=== PATIENT | male | born 1950 | race Caucasian/White ===

== ENCOUNTER 2019-07-24 07:30 | Outpatient (CLI) | payer MEDICARE, SELFPAY ==
--- NOTE | ~2019-07-24 | PE_ITS ---
. EXAMINATION: PET skull to mid thigh DATE: 07/24/2019 10:48 INDICATION: Mass of lower lobe of right lung. TECHNIQUE: Blood glucose level was 119 mg/dL. 8.094 mCi of 18-fluorodeoxyglucose (18-FDG) was adminis tered i.v. Low dose computed tomography (CT) images were acquired from the base of the brain to the p roximal thighs for attenuation correction and anatomic localization. Automated exposure control was e mployed. Dose-length product (DLP) was 735 mGy-cm. Positron emission tomography (PET) images were acq uired in the same distribution. COMPARISON: Chest CT 07/08/2019, CT abdomen and pelvis 01/24/2016 FINDINGS: Head/neck: There are no pathologically enlarged lymph nodes. Chest: There is a 3.2 x 2.3 cm mass in right lung lower lobe near the hilum with maximum SUV of 9.5. There are airspace opacities in the more peripheral right lower lobe without increased activity, cons istent with pneumonia. No pleural effusion. The heart size is normal. There are coronary artery calci fications. There are calcifications of aortic valve. There is a 1.5 x 1.5 cm right paratracheal lymph node without increased activity, likely reactive. Abdomen/pelvis/proximal thighs: The liver and spleen are normal. There are gallstones in the gallblad geovani, which is normal in size. The pancreas, adrenal glands, and kidneys are normal. There are no dila barron loops of bowel. The prostate is moderately enlarged. There is diffuse bladder wall thickening, li brooklynn secondary to chronic outlet obstruction from the enlarged prostate. There are no pathologically enlarged lymph nodes. There is trace perihepatic ascites. There is no osseous metastatic disease. IMPRESSION: 1. 3.2 x 2.3 cm mass in right lung lower lobe with maximum SUV of 9.5, consistent with primary bronch ogenic carcinoma. Bronchoscopy is recommended. 2. Postobstructive pneumonia in right lower lobe. Reviewed, dictated and finalized at location A. N RESOURCE ADVISER IMPRESSION: 1. 3.2 x 2.3 cm mass in right lung lower lobe with maximum SUV of 9.5, consiste nt with primary bronchogenic carcinoma. Bronchoscopy is recommended. 2. Postobstructive pneumonia in right lower lobe.
[2019-07-24 08:25] LABS: Glucose Point of Care 119 (65-105)
== END 2019-07-24 07:31 | disposition home or self-care (01) ==
PROVIDERS: PCP Internal Medicine
DX: R91.8 Other nonspecific abnormal finding of lung field (principal)
CPT/HCPCS: 78815; A9552

== ENCOUNTER 2019-08-14 09:10 | Outpatient (CLI) | payer MEDICARE, SELFPAY ==
--- NOTE | ~2019-08-14 | US_ITS ---
EXAMINATION: US carotid duplex BI EXAM DATE: 08/14/2019 10:03 INDICATION: Carotid artery stenosis. TECHNIQUE: Grayscale, color and pulsed Doppler images of the cervical carotid arteries were obtained . The degree of vessel stenosis is placed in one of the following categories: normal, <50% stenosis, 50-69% stenosis, >=70% stenosis but less than near-occlusion, near-occlusion, or occlusion. Note that percent stenosis relative to normal distal artery lumen diameter is indirectly measured from velocit y measurements as described by Shashi, et al. Radiology 2003; [id number]:[id number]. Comparison is made to prior examination from 11/27/2012. FINDINGS: RIGHT SIDE: Right common carotid artery peak systolic velocity (PSV in cm/s): 108 Right bulb/internal carotid artery peak systolic velocity (PSV in cm/s): 72 Right internal carotid artery end diastolic velocity (EDV in cm/s): 21 Right ICA/CCA peak systolic ratio: 0.6 Right external carotid artery peak systolic velocity (PSV in cm/s): 136 Right vertebral artery antegrade flow: yes There is no focal plaque identified. LEFT SIDE: Left common carotid artery peak systolic velocity (PSV in cm/s): 98 Left bulb/internal carotid artery peak systolic velocity (PSV in cm/s): 150 Left internal carotid artery end diastolic velocity (EDV in cm/s): 29 Left ICA/CCA peak systolic ratio: 1.5 Left external carotid artery peak systolic velocity (PSV in cm/s): 97 Left vertebral artery antegrade flow: yes Moderate amount of left carotid bulb plaque, 50-69% carotid stenosis category. IMPRESSION: 1. Less than 50 percent stenosis in the right internal carotid artery. 2. 50-69% stenosis left internal carotid artery. Reviewed, dictated and finalized at location B. NO CONTROLLER
== END 2019-08-14 09:11 | disposition home or self-care (01) ==
PROVIDERS: PCP Internal Medicine; Visit Provider Internal Medicine Cardiovascular Disease
DX: I65.23 Occlusion and stenosis of bilateral carotid arteries (principal)
CPT/HCPCS: 93880

== ENCOUNTER 2019-08-29 05:39 | Emergency (ER) | payer MEDICARE, SELFPAY ==
[2019-08-29] VITALS (24 sets, daily range): BP systolic 142–176; BP diastolic 52–110; PULSE 60–129; RESP 16–28; TEMP 36.7; O2SAT 90–99
--- NOTE | ~2019-08-29 | XR_ITS ---
XR chest 2V DATE: 08/29/2019 06:12 INDICATION: Shortness of breath TECHNIQUE: PA and lateral views COMPARISON: 12/17/2015 2 view chest 07/08/2019 CT chest FINDINGS: There is residual patchy infiltrate in the right lower lobe, primarily in the posteromedial basilar segments. The lungs otherwise appear clear. Status post sternotomy/coronary artery bypass graft surgery. Heart size is within normal limits. Ther e is probably vascular redistribution, prominence of the fissures and Joni B-lines suggesting mild congestive changes. No pleural effusion or pneumothorax is evident. Aortic arch calcification. IMPRESSION: Persistent patchy right lower lobe primarily posterior or medial basilar infiltrate Mild congestive changes Reviewed, dictated and finalized at location A. IMPRESSION: Persistent patchy right lower lobe primarily posterior or medial ba silar infiltrate Mild congestive changes
--- NOTE | ~2019-08-29 | CT_ITS ---
EXAMINATION: CTA chest PE protocol DATE: 08/29/2019 10:02 INDICATION: Chest pain. TECHNIQUE: Computed tomography angiography (CTA) of the chest was performed with 100 mL Omnipaque-350 intravenous contrast timed to evaluate the pulmonary arteries. Coronal maximum intensity projection 3D-reconstructions were created by the technologist. Automated exposure control and iterative reconst ruction technique were employed. The dose-length product was 561.33 mGy-cm. COMPARISON: Chest CT 07/08/2019, PET CT 07/24/2019 FINDINGS: There is a 3.1 x 2.6 cm mass in right lung lower lobe. There are mucous plugging and airspa ce and groundglass opacities in basilar right lower lobe peripheral to the mass, consistent with pneu monia. There is smooth septal thickening in the lungs, consistent with mild pulmonary edema. There ar e small pleural effusions, right worse than left. There is mild right hilar and right paratracheal ly mphadenopathy. The heart size is normal. There are coronary artery calcifications. There are changes of coronary artery bypass grafting. There are calcifications of the aortic valve. There is no pulmona ry embolus. There is a small volume of perihepatic ascites. There is mild thoracic spondylosis. IMPRESSION: 1. No pulmonary embolus. 2. Stable mass in right lung lower lobe, consistent with primary bronchogenic carcinoma. 3. Postobstructive pneumonia in basilar right lower lobe. 4. Mild pulmonary edema and small pleural effusions. 5. Mild right hilar and mediastinal lymphadenopathy without change and without increased activity on the prior PET, likely reactive. 6. Small volume of ascites. Reviewed, dictated and finalized at location A. IMPRESSION: 1. No pulmonary embolus. 2. Stable mass in right lung lower lobe, consistent with primary bronchogenic c arcinoma. 3. Postobstructive pneumonia in basilar right lower lobe. 4. Mild pulmonary edema and small pleural effusions. 5. Mild right hilar and mediastinal lymphadenopathy without change and without increased activity on the prior PET, likely reactive. 6. Small volume of ascites.
--- NOTE | 2019-08-29 05:46 | ECG_ITS ---
Measurements Intervals [place] Rate: 72 P: 51 OH: 154 QRS: 62 QRSD: 110 T: 145 QT: 397 QTc: 437 Interpretive Statements SINUS RHYTHM POSSIBLE LEFT ATRIAL ENLARGEMENT ST-T WAVE ABNORMALITY IN ANTEROLAT/LAT LEADS- CONSIDER ISCHEMIA ABNORMAL ECG Electronically Signed On 08-29-2019 7:10:02 CDT by Kane Talamantes D.O.
[2019-08-29 06:00] LABS: Basophils Percent Auto 0.5 % (0.2-1.2); Eosinophils Absolute Auto 0.1 K/mm3 (0-0.3); Eosinophils Percent Auto 1.3 % (0-4.4); Hematocrit 33.6 % (42.0-52.0); Hemoglobin 10.3 g/dL (14.0-18.0); Immature Granulocyte Absolute 0.02 K/mm3 (0.00-0.031); Immature Granulocyte Percent A 0.3 % (0-0.5); Lymphocytes Absolute Auto 0.81 K/mm3 (0.9-3.2); Lymphocytes Percent Auto 12.9 % (18.3-44.2); Mean Corpuscular HGB Conc 30.7 g/dl (32-36); Mean Corpuscular Volume 84.8 fl (80-100); Mean Platelet Volume 10.6 fl (7.4-10.4); Monocytes Absolute Auto 0.4 K/mm3 (0.1-0.6); Neutrophils Absolute Auto 4.9 K/mm3 (1.3-6.7); Platelet Count Result 84 k/mm3 (150-375); Red Blood Count 3.96 M/mm3 (4.6-6.20); White Blood Count 6.3 K/mm3 (4.5-10.0)
[2019-08-29 06:09] LABS: Prothrombin Time 12.7 Seconds (11.1-14.7)
[2019-08-29 06:10] LABS: Partial Thromboplastin Time 30.3 SECONDS (22.3-36.8)
[2019-08-29 06:18] LABS: Blood Urea Nitrogen 15 mg/dL (9-20); Carbon Dioxide 27 mmol/L (22-30); Chloride 103 mmol/L (98-107); Estimated Glomerular Filt Rate > 60; Glucose 230 mg/dL (75-110); Sodium 140 mmol/L (137-145)
--- NOTE | 2019-08-29 07:37 | ED.GENADULT ---
HPI - General Adult General Chief complaint: Dental/Oral Stated complaint: jaw pain Time Seen by Provider: 08/29/19 06:25 Source: patient History of Present Illness HPI narrative: Patient is a 69 y/o male complaining of bilateral jaw pain and chest tightness since approximately 1-2 hours ago starting at 5:00 AM. He rates his pain as 7/10. He took Nitro, which relieved the pain. He is currently pain free. He had some SOB, which has also resolved. There is no pain radiation. He has no chest pain, no nausea or vomiting. He states that he has known CAD and is scheduled for cath next week. He is also recently diagnosed with lung cancer. Related Data Home Medications Medication Instructions Recorded Confirmed acetaminophen-codeine tablet 08/29/19 fenofibrate nanocrystallized mg PO 08/29/19 lisinopril 08/29/19 metformin mg PO 08/29/19 metoprolol tartrate 08/29/19 nitroglycerin mg 08/29/19 omeprazole 08/29/19 sucralfate 08/29/19 Allergies Allergy/AdvReac Type Severity Reaction Status Date / Time levofloxacin Allergy Severe ANAPHYLAXIS Verified 08/29/19 05:54 Review of Systems Constitutional: Constitutional: Denies chills, Denies fever(s), Denies headache(s) and Denies weakness Eyes: Eyes: Denies blurry vision ENT: Denies headache(s) and Denies neck pain Comments: jaw pain Cardiovascular: Cardiovascular: Reports chest pain and Denies dyspnea Respiratory: Respiratory: Reports cough and Reports dyspnea Gastrointestinal: Gastrointestinal: Denies abdominal pain, Denies diarrhea, Denies nausea and Denies vomiting Genitourinary: Genitourinary: Denies hematuria and Denies dysuria Musculoskeletal: Musculoskeletal: Denies back pain and Denies neck pain Neurologic: Denies headache(s) and Denies weakness [facility] Past Medical History Medical History (Updated 08/29/19 @ 13:08 by Merna Knight MD) Atrial flutter Carotid disease, bilateral Diabetes Hyperlipidemia Junctional rhythm PAD (peripheral artery disease) Occluded right iliac, diseased left iliac Surgical History Surgical History (Updated 08/29/19 @ 09:54 by Lizzeth Valenzuela MD) Hx of CABG 2011: CABG x4. 2014: All grafts occluded except the SANDOVAL. Complex balloon angioplasty of the circumflex performed. 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 Smoking packs per day: 1 Smoking cigarettes per day: 20.0 Alcohol intake: never Exam Const: General: no acute distress and well developed Orientation/consciousness: oriented to person, oriented to place, oriented to time and patient oriented x3 HENMT: Head: normocephalic Ears: external ears normal General nose exam: Normal external nose present Eyes: General: appearance normal, both eyes and all related structures Conjunctivae: conjunctivae normal Neck: Neck: normal visual inspection and full ROM Chest: Chest palpation & inspection: normal inspection of the chest and no tenderness Resp: Effort & Inspection: normal respiratory effort Auscultation: clear to auscultation bilaterally Cardio: Rate: regular rate Rhythm: regular rhythm GI: GI Palp: No abdominal tenderness and Yes Soft to palpation Skin: General skin exam: normal color and turgor normal Neuro: General: oriented to person, oriented to place, oriented to time and patient oriented x3 Cognition (Neuro): normal cognition Extrem: General: normal to inspection, full ROM and no pedal edema Psych: Appearance: grossly normal Mental Status: mental status grossly normal Affect: normal affect Course Reevaluation(s) Reevaluation #1: Patient is seen by Dr. Valenzuela in ED. Date: 08/29/19 Time: 09:50 Reevaluati
--- NOTE | 2019-08-29 08:07 | ECG_ITS ---
Measurements Intervals [place] Rate: 126 P: 54 VA: 222 QRS: 100 QRSD: 128 T: -4 QT: 349 QTc: 506 Interpretive Statements ATRIAL FLUTTER/TACHYCARDIA WITH RAPID VENTRICULAR RESPONSE RIGHT BUNDLE BRANCH BLOCK ST-T WAVE ABNORMALITY IN INFERIOR LEADS- CONSIDER ISCHEMIA ABNORMAL ECG Electronically Signed On 08-29-2019 8:19:22 CDT by Kane Talamantes D.O.
[2019-08-29] MEDS: METOPROLOL TARTRATE INJ 5 MG/5 ML VIAL IV PUSH (09:00)
[2019-08-29 09:01] LABS: D Dimer 0.61 ug/mL (<0.48)
[2019-08-29] MEDS: METOPROLOL TARTRATE 50 MG TAB PO (09:01)
--- NOTE | 2019-08-29 09:38 | WPDCN ---
Assessment and Plan Assessment and plan (1) Unstable angina: Code(s): I20.0 - Unstable angina Status: Acute Assessment and Plan: Patient presented with new onset of jaw and throat pain with some slight ST depression consistent with unstable angina. This is his 1st episode of anginal type symptoms for years, although he has had a lot of HOSKINS recently and stress test showing large areas of ischemia. Cardiac catheterization was planned for next week, at [facility] because of his vascular complexity. After discussion with Dr. Weldon and Dr. Tinoco we recommended transfer to [facility] today for cardiac catheterization tomorrow. (2) CAD (coronary artery disease): Code(s): I25.10 - Atherosclerotic heart disease of [place] coronary artery without angina pectoris Status: Acute Assessment and Plan: Complex CAD, CABG, all grafts occluded except for the Left anterior descending. CX stent placed in 2016. (3) Atrial flutter: Code(s): I48.92 - Unspecified atrial flutter Status: Acute Assessment and Plan: Transient atrial flutter versus SVT this morning, new onset, rate 128, basically asymptomatic to the patient. Resolved with 1 dose of IV metoprolol 5 mg and subsequent p.o. metoprolol. (4) Junctional rhythm: Code(s): I49.8 - Other specified cardiac arrhythmias Status: Acute Assessment and Plan: History of intermittent junctional rhythm heart rate in the 40s per Dr. Weldon. (5) PAD (peripheral artery disease): Code(s): I73.9 - Peripheral vascular disease, unspecified Status: Acute Assessment and Plan: Bilateral iliac disease with occluded right iliac. Vascular access may be quite difficult for cardiac catheterization. (6) HTN (hypertension): Code(s): I10 - Essential (primary) hypertension Status: Acute Assessment and Plan: BP elevated on admission (7) Squamous cell lung cancer: Code(s): C34.90 - Malignant neoplasm of unspecified part of unspecified bronchus or lung Status: Acute Assessment and Plan: Being evaluated for squamous? cell lung cancer, possible resection if patient's comorbidities allow and IF HIS BRAIN MRI IS NEGATIVE. I dont know that this has been done yet.. HPI Data of Consult Date/Time: 08/29/19 09:38 Primary Care Provider: Real Mccall, Consult Narrative Narrative: Date of service: 08/29/2019 Edilson Salvador Sr. is a 69 year old male whom I was asked to see at the request of the ER physician Dr. Knight for my advice and opinion regarding his jaw discomfort and EKG changes in consultation. Mr. Salvador has a complicated medical history with CAD, being evaluated for right lung squamous? cell cancer (Dr. Saturnino Greene) resection (Dr. Jose Lopes) , recent abnormal stress test, cardiac catheterization scheduled for next week at [facility] by Dr. Tinoco. The patient has been having a lot of SOB and HOSKINS recently. O2 sat sometimes are in the upper 80s at home. This morning after awakening around 430 he noted shortness of breath and jaw and throat discomfort. He was sweaty. He took a nitroglycerin with relief but since this was an unusual occurrence (no jaw pain or use of TNG since his CX stent in 2015) and he was still short of breath so asked his to call 911 and he was brought to the ER. EKG showed [address] depression laterally. First troponin was 0.04. Subsequently he went into a tachyarrhythmia, for probably an atrial flutter heart rates 126 which he tolerated remarkably well. After metoprolol 5 mg IV push x1 sinus rhythm was restored. He has no history of any tachyarrhythmias and did not feel palpitations. He does have a history of intermittent junctional rhythm with heart rates in the 40s. The patient has history of hypertension, diabetes and hypercholesterolemia. Also carotid stenosis. He quit smoking yesterday. Cardiac history: 2010: Non-STEMI, CABG x
--- NOTE | 2019-08-29 09:41 | PC.NURSE ---
Pt removed himself from the monitor to walk to bathroom.
--- NOTE | 2019-08-29 09:42 | PC.NURSE ---
Pt currently refusing to have CT scan until he talks to his ..
[2019-08-29 09:43] LABS: Troponin I 0.054 ng/mL (0.000-0.034)
--- NOTE | 2019-08-29 12:09 | PC.NURSE ---
To [facility] via [place] [facility]. Condition stable.
[2019-08-29 12:24] LABS: Troponin I 0.127 ng/mL (0.000-0.034)
== END 2019-08-29 12:10 | disposition short-term general hospital (02) ==
PROVIDERS: Emergency Medicine; Emergency Provider Emergency Medicine; PCP Internal Medicine
DX: J18.9 Pneumonia, unspecified organism (principal); R07.9 Chest pain, unspecified; I48.92 Unspecified atrial flutter; E11.9 Type 2 diabetes mellitus without complications; E78.5 Hyperlipidemia, unspecified; Z95.1 Presence of aortocoronary bypass graft
CPT/HCPCS: 36415; 71046; 71275; 80048; 84484; 85025; 85380; 85610; 85730; 87040; 93005; 96374; 96375; 99285; A9270; J0456; J0696; Q9967

== ENCOUNTER 2020-01-28 07:32 | Outpatient (CLI) | payer MEDICARE, SELFPAY ==
--- NOTE | ~2020-01-28 | CT_ITS ---
EXAMINATION: CT chest wo con DATE: 01/28/2020 08:08 INDICATION: Malignant neoplasm of lower lobe, RT lung TECHNIQUE: Computed tomography (CT) of the chest was performed without intravenous contrast. Addition al 3D reconstructions utilizing coronal maximum intensity projection (MIP) were performed. Automated exposure control and iterative reconstruction technique were employed. The dose-length product was 30 2.64 mGy-cm. COMPARISON: 08/29/2019 FINDINGS: Oval decrease in size of a now 12 x 9 mm, previously 3.1 x 2.6 cm right lower lobar mass situated in the infrahilar region near the origin of the posterior basilar segmental bronchus of the right lower lobe. There is persistent obstruction of multiple of the more peripheral bronchi with tree-in-bud pat tern and peripheral atelectasis in the posterior basilar segment of the right lower lobe. There is sc attered mucous plugging within several of the bronchi in the lateral and anterior basilar segments of the right lower lobe. Remainder of the lungs are clear. No pleural effusion. Heart size is normal. A therosclerotic coronary artery calcifications and changes of median sternotomy and coronary artery by pass grafting. Aortic valve calcification. Atherosclerotic calcification along the normal caliber tho racic aorta. No pathologically enlarged mediastinal or hilar lymphadenopathy. Couple diverticula with out adjacent inflammatory change present along the cephalad margin of the splenic flexure of the colo n. Mild thoracic spondylosis. IMPRESSION: 1. Significant decrease in size of a now 12 x 9 mm right lower lobe mass consistent with likely respo nse to treatment of primary bronchogenic carcinoma. 2. Persistent mucous plugging of multiple basal bronchi of the right lower lobe most severe in the po sterior basilar segment. There are also tree-in-bud opacities which could represent atelectasis or po stobstructive pneumonia. Reviewed, dictated and finalized at location A. IMPRESSION: 1. Significant decrease in size of a now 12 x 9 mm right lower lobe mass consis tent with likely response to treatment of primary bronchogenic carcinoma. 2. Persistent mucous plugging of multiple basal bronchi of the right lower lobe most severe in the posterior basilar segment. There are also tree-in-bud opaci ties which could represent atelectasis or postobstructive pneumonia.
== END 2020-01-28 07:33 | disposition home or self-care (01) ==
PROVIDERS: PCP Nurse Practitioner Family; Visit Provider Radiology Radiation Oncology
DX: C34.31 Malignant neoplasm of lower lobe, right bronchus or lung (principal)
CPT/HCPCS: 71250

== ENCOUNTER 2020-05-12 10:11 | Outpatient (CLI) | payer MEDICARE, SELFPAY ==
--- NOTE | ~2020-05-12 | CT_ITS ---
EXAMINATION: CT chest wo con EXAM DATE: 05/12/2020 10:40 INDICATION: Malignant neoplasm of lower lobe, rt lung. TECHNIQUE: Spiral CT of the chest without contrast. Axial, coronal and sagittal images were reviewe d. Coronal maximum intensity pixel images of chest reviewed. The dose-length product (DLP) for this examination was 336.31 mGy-cm. The exposure was tailored according to patient size (auto mA exposur e control), and iterative reconstruction (ASIR) was used as additional dose reduction technique. Comp arison is made to prior examination from 01/28/2020. FINDINGS: Previously seen right lower lobe infrahilar malignancy previously measuring 9 x 12 mm on appears unchanged compared to that exam. Appearance is consistent with treated malignancy. At the mass there is occlusion of multiple right lower lobe segmental bronchi, could be from mucous or scar ring following treatment, finding is the only change compared to prior study. The lungs are otherwise clear. There are no pleural or pericardial effusions. Tracheobronchial tr ee is patent. There is no mediastinal, hilar or axillary lymphadenopathy. There is no pneumothora x. Heart normal in size. There are sternotomy wires, and cardiac/coronary surgical changes. Corre late with prior history. Suspect cirrhosis and portal hypertension with mild splenomegaly and small amount of perihepatic ascites. There is thoracic spondylosis without osteoblastic or osteolytic lesi ons identified. IMPRESSION: 1. Findings consistent with treated right infrahilar malignancy, stable except for increase in right basilar segmental bronchi opacity, probably mucus plugging but could also be sequela from scarring, treatment related. 2. Findings suspicious for cirrhosis and portal hypertension. Reviewed, dictated and finalized at location B. GER BABY IMPRESSION: 1. Findings consistent with treated right infrahilar malignancy, stable except for increase in right basilar segmental bronchi opacity, probably mucus pluggi ng but could also be sequela from scarring, treatment related. 2. Findings suspicious for cirrhosis and portal hypertension.
== END 2020-05-12 10:12 | disposition home or self-care (01) ==
LOC: ANHIMG 10:25
PROVIDERS: PCP Nurse Practitioner Family; Visit Provider Radiology Radiation Oncology
DX: C34.31 Malignant neoplasm of lower lobe, right bronchus or lung (principal)
CPT/HCPCS: 71250

== ENCOUNTER 2020-06-02 09:05 | Outpatient (CLI) | payer MEDICARE, SELFPAY ==
--- NOTE | ~2020-06-02 | US_ITS ---
US right upper quadrant INDICATION: Cirrhosis PROCEDURE: Realtime right upper abdominal ultrasound. COMPARISON: 04/17/2016 FINDINGS: The pancreas is normal without focal mass or pancreatic ductal dilation. Liver echotexture is coarse and heterogeneous, consistent with fatty infiltration. There is normal directional flow i n the portal vein. Small amount of free fluid. There are gallstones. Mild gallbladder wall thickening. Common bile duct measures 10 mm. No sonograp hic Chiang's sign. IMPRESSION: 1: Cholelithiasis with gallbladder wall thickening and biliary dilatation. Findings suspicious for ac [place]ak cholecystitis. Clinically correlate. 2: Fatty infiltration of the liver. Reviewed, dictated and finalized at location A. SETTING MACHINE TENDER IMPRESSION: 1: Cholelithiasis with gallbladder wall thickening and biliary dilatation. Find ings suspicious for acute cholecystitis. Clinically correlate. 2: Fatty infiltration of the liver.
== END 2020-06-02 09:06 | disposition home or self-care (01) ==
PROVIDERS: PCP Nurse Practitioner Family; Referring Provider Internal Medicine Gastroenterology; Visit Provider Internal Medicine Gastroenterology
DX: K74.60 Unspecified cirrhosis of liver (principal); K76.0 Fatty (change of) liver, not elsewhere classified; K80.20 Calculus of gallbladder without cholecystitis without obstruction
CPT/HCPCS: 76705

== ENCOUNTER 2020-12-03 09:19 | Outpatient (CLI) | payer MEDICARE, SELFPAY ==
--- NOTE | ~2020-12-03 | US_ITS ---
EXAMINATION: US carotid duplex BI DATE: 12/03/2020 09:50 INDICATION: Bilateral carotid artery stenosis TECHNIQUE: Grayscale, color Doppler, and pulsed Doppler images of the cervical carotid arteries were obtained. The degree of vessel stenosis is placed in one of the following categories: normal, <50%, 5 0-69%, >=70% but less than near-occlusion, near-occlusion, or total occlusion. Note that percent sten osis relative to normal distal artery lumen diameter is indirectly measured from velocity measurement s as described by Hsashi, et al. Radiology 2003; [id number]:340-346. Notes: Normal: Peak systolic velocity <125 centimeters/sec and no plaque <50%. Peak systolic velocity <125 ( EDV <40; ICA/CCA PSV ratio <2.0; used these factors only a tandem lesions or low cardiac output or co ntralateral disease) 50-69 %: PSV 125-230 (EDV 40-100; ratio 2-4) >= 70% but less than near occlusion: PSV greater than 230 (EDV > 100; ratio> 4.0) Near Occlusion: PSV that is variable; markedly narrowed lumen Occlusion: Absent flow on color/spectral Doppler and no lumen on white scale. COMPARISON: None. FINDINGS: RIGHT: The right common carotid artery (CCA) peak systolic velocity (PSV) is 97 cm/s. The right internal car otid artery (ICA) PSV is 67 cm/s. The right ICA end-diastolic velocity (EDV) is 7 cm/s. The right ICA /CCA PSV ratio is 0.7. The external carotid artery (ECA) PSV is 108 cm/s. There is antegrade flow in the right vertebral artery. LEFT: The left CCA PSV is 95 cm/s. The left ICA PSV is 97 cm/s. The left ICA EDV is 32 cm/s. The left ICA/C CA PSV ratio is 1. The ECA PSV is 144 cm/s. There is antegrade flow in the left vertebral artery. IMPRESSION: 1. Less than 50% stenosis in the right internal carotid artery by sonographic criteria. 2. Less than 50% stenosis in the left internal carotid artery by sonographic criteria. Reviewed, dictated and finalized at location A. IMPRESSION: 1. Less than 50% stenosis in the right internal carotid artery by sonographic jesse tang. 2. Less than 50% stenosis in the left internal carotid artery by sonographic melvin hartley.
== END 2020-12-03 09:20 | disposition home or self-care (01) ==
LOC: ANHIMG 09:20
PROVIDERS: PCP Nurse Practitioner Family; Visit Provider Internal Medicine Cardiovascular Disease
DX: I65.23 Occlusion and stenosis of bilateral carotid arteries (principal)
CPT/HCPCS: 93880

== ENCOUNTER → 2021-07-02 10:48 | Outpatient (CLI) | payer MEDICARE, SELFPAY ==
[2021-07-02 20:41] LABS: SARS-CoV-2 RNA PCR Positive
== END ==
PROVIDERS: PCP Nurse Practitioner Family; Visit Provider Nurse Practitioner Family
DX: U07.1 COVID-19 (principal)
CPT/HCPCS: C9803; U0003; U0005

== ENCOUNTER 2021-07-18 17:01 | Emergency (ER) | payer MEDICARE, SELFPAY ==
--- NOTE | 2021-07-18 17:13 | ED.ABDPAIN ---
HPI - Abdominal Pain General Chief Complaint: Abdominal Pain Stated Complaint: abd pain Time Seen by Provider: 07/18/21 17:17 Source: patient Mode of arrival: ambulatory Limitations: no limitations History of Present Illness HPI narrative: Edilson Salvador is a 71 yo male with PMH of right non-small cell lung cancer, cirrhosis, HTN, high cholesterol, COPD, anticoagulation, chronic pain, diabetes,GERD, comes to [facility] for complaints of abdominal pain for the past 2 weeks. His pain is 2-8 over 10 depending on the day as it does not seem to be provoked by eating or movement, he says that his pain was intense just before he came in Sees his oncologist at [facility] Related Data Home Medications Medication Instructions Recorded Confirmed acetaminophen-codeine 1 - 2 tablet PO Q6-8H PRN 08/29/19 05/14/20 fenofibrate nanocrystallized 145 mg PO DAILY 08/29/19 05/14/20 metformin 500 mg PO BID 08/29/19 05/14/20 metoprolol tartrate 50 mg BID 08/29/19 05/14/20 nitroglycerin 0.4 mg SUBLINGUAL Q5MIN PRN 08/29/19 05/14/20 omeprazole 40 mg PO DAILY 08/29/19 05/14/20 sucralfate 1 g PO Q6H 08/29/19 05/14/20 albuterol sulfate 2 puff INHALATION QID PRN 09/25/19 05/14/20 aspirin [Aspirin Low Dose] 81 mg PO DAILY 09/25/19 05/14/20 atorvastatin [Lipitor] 40 mg PO DAILY 09/25/19 05/14/20 budesonide-formoterol [Symbicort] 2 puff INHALATION Q12H 09/25/19 05/14/20 cholecalciferol (vitamin D3) 50,000 unit PO DAILY 09/25/19 05/14/20 clopidogrel [Plavix] 75 mg PO DAILY 09/25/19 05/14/20 ferrous sulfate 325 mg PO DAILY 09/25/19 05/14/20 fluticasone propionate [Flonase 1 - 2 spray INTRANASAL DAILY 09/25/19 05/14/20 Allergy Relief] glipizide [Glucotrol] 5 mg PO TID 09/25/19 05/14/20 insulin detemir U-100 [Levemir 100 unit SUBCUT BID 09/25/19 05/14/20 U-100 Insulin] ipratropium-albuterol 3 ml INHALATION QID 09/25/19 05/14/20 isosorbide mononitrate 60 mg PO DAILY 09/25/19 05/14/20 lisinopril 40 mg PO DAILY 09/25/19 05/14/20 nicotine 1 patch TRANSDERMAL DAILY 09/25/19 05/14/20 gabapentin 07/18/21 Allergies Allergy/AdvReac Type Severity Reaction Status Date / Time levofloxacin Allergy Severe ANAPHYLAXIS Verified 06/25/21 12:48 Quinolones Allergy Mild Verified 06/25/21 12:48 Review of Systems Review of Systems: CONSTITUTIONAL: Denies fever, chills, sweats. EYES: Denies visual changes, redness, discharge. ENT: Denies rhinorrhea, congestion, sore throat, otalgia. CARDIOVASCULAR: Denies chest pain, palpitations, edema. RESPIRATORY: Denies dyspnea, wheezing, cough GASTROINTESTINAL: Has abdominal pain, nausea, vomiting, diarrhea. GENITOURINARY: Denies dysuria, hematuria, abnormal discharge SKIN: Denies rash or itching. NEUROLOGIC: Denies numbness, or focal weakness. PSYCHIATRIC: Denies anxiety or depression. [facility] Past Medical History Medical History Atrial flutter Carotid disease, bilateral Diabetes Hyperlipidemia Junctional rhythm NSCLC of right lung PAD (peripheral artery disease) Occluded right iliac, diseased left iliac Surgical History Surgical History Hx of CABG 2011: CABG x4. 2014: All grafts occluded except the SANDOVAL. Complex balloon angioplasty of the circumflex performed. 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
--- NOTE | 2021-07-18 17:14 | PC.NURSE ---
in br to obtain ua spec.
[2021-07-18 17:18] VITALS: BP 131/97; PULSE 73; RESP 16; TEMP 36.1; O2SAT 97
== END 2021-07-18 17:49 | disposition short-term general hospital (02) ==
PROVIDERS: Emergency Provider Nurse Practitioner; PCP Nurse Practitioner Family
DX: R10.84 Generalized abdominal pain (principal); C34.91 Malignant neoplasm of unspecified part of right bronchus or lung; E11.9 Type 2 diabetes mellitus without complications; E78.5 Hyperlipidemia, unspecified; I73.9 Peripheral vascular disease, unspecified; Z87.891 Personal history of nicotine dependence; I48.92 Unspecified atrial flutter; I77.9 Disorder of arteries and arterioles, unspecified; K74.60 Unspecified cirrhosis of liver; J44.9 Chronic obstructive pulmonary disease, unspecified; K21.9 Gastro-esophageal reflux disease without esophagitis; Z95.1 Presence of aortocoronary bypass graft
CPT/HCPCS: 81003; 99212; G0463

== ENCOUNTER 2021-07-18 18:13 | Emergency (ER) | payer MEDICARE, SELFPAY ==
--- NOTE | ~2021-07-18 | CT_ITS ---
EXAMINATION: CT abdomen pelvis w con DATE: 07/18/2021 20:25 INDICATION: Abdominal pain for one week TECHNIQUE: Computed tomography (CT) of the abdomen and pelvis was performed with 100 cc Omnipaque 350 intravenous contrast. Automated exposure control and iterative reconstruction technique were employe d. Exam dose: 592.40 mGy-cm total exam DLP. COMPARISON: 06/02/2020 right upper quadrant abdominal ultrasound 07/24/2019 PET/CT imaging 01/24/2016 CT abdomen pelvis FINDINGS: There is a 1.6 x 1.7 cm hypoattenuating mass density in the lower right perihilar area, rig ht lower lobe, likely corresponding to a 3.2 x 2.3 cm mass described in the right lower lobe near the hilum on July 24, 2019 PET/CT scan. There is focal streaky infiltrate in the posteromedial right lower lobe. There is very prominent coronary artery calcification. Status post sternotomy. Heart size is within n ormal range. There is no pericardial or pleural effusion. There is minimal perihepatic ascites. Surface nodularity of the liver has been described on 01/24/2016 CT abdomen pelvis examination. There is splenomegaly, spleen measuring up to 14.5 cm vertical dimension. There is a small laceration at the upper anterolateral margin of the spleen. Cholelithiasis is again noted. There is mild pericholecystic fluid. There is mild peripancreatic fat stranding suggesting pancreatitis. There is pancreatic duct dilatati on, measuring up to 6 mm diameter. There is interval enlargement of a hypoattenuating lesion at the junction of the head and neck of the pancreas, currently measuring up to at least 2.4 cm maximal dimension; pancreatic carcinoma is not e xcluded. Consider MRCP for further evaluation. Normal morphology of the adrenal glands. No renal mass lesion or ureteral calculus or hydroureteronephrosis. There is extensive bilateral aleksandra l artery calcification. Prominent abdominal aortic and iliac as well as femoral artery calcification; no abdominal aortic aneurysm. There is celiac and prominent superior mesenteric artery as well as in ferior mesenteric artery calcification. No enlarged abdominal or pelvic lymphadenopathy. There is prostate enlargement and calcification. There is diffuse thickening of the urinary bladder w all likely due to bladder outlet obstruction due to prostatomegaly. Prominent bilateral vas deferens calcifications, likely associated with diabetes. There is nonspecific thickening of the wall of the stomach. Normal appendix. There is diverticulosis of left and right colon; no CT evidence of diverticulitis. No bowel obstruction, bowel wall thickening, pneumatosis or intraperitoneal free air. There is a subxiphoid ventral midline abdominal wall fat-containing hernia measuring up to 3 cm trans verse dimension. Very small fat-containing umbilical hernia. No suspicious osteolytic or osteoblastic lesions are noted. Bilateral hip osteoarthritis. IMPRESSION: Right infrahilar probable necrotic malignant lung mass Right lower lobe infiltrate Cirrhosis, splenomegaly Small linear splenic laceration Peripancreatic fat stranding suggesting pancreatitis Enlarged 2.4 cm hypoattenuating mass in the junction of pancreatic head and neck; pancreatic carcinom a is not excluded. Consider MRCP for further evaluation Pancreatic duct dilatation Cholelithiasis Mild pericholecystic fluid; cannot exclude acute cholecystitis, but this finding is nonspecific Minimal ascites Extensive arterial calcifications including renal arteries, mesenteric arteries, aortic, iliac and fe moral arteries Diverticulosis of left and right colon; no CT evidence of diverticulitis Reviewed, dictated and finalized at [facility]. Reviewed, dictated and finalized at [facility]. [employer] IMPRESSION: Yaya
[2021-07-18 18:18] VITALS: BP 140/57; PULSE 94; RESP 14; TEMP 36.7; O2SAT 99
[2021-07-18 18:37] VITALS: BP 137/99; PULSE 89; RESP 16; O2SAT 97
[2021-07-18 19:05] LABS: Basophils Percent Auto 0.5 % (0.2-1.2); Eosinophils Absolute Auto 0.1 K/mm3 (0-0.3); Eosinophils Percent Auto 0.6 % (0-4.4); Hematocrit 38.6 % (42.0-52.0); Hemoglobin 12.9 g/dL (14.0-18.0); Immature Granulocyte Absolute 0.02 K/mm3 (0.00-0.031); Immature Granulocyte Percent A 0.3 % (0-0.5); Immature Platelet Fraction Pct 5.4 % (0.9-11.2); Lymphocytes Percent Auto 10.4 % (18.3-44.2); Mean Corpuscular HGB Conc 33.4 g/dl (32-36); Mean Corpuscular Hemoglobin 27.8 pg (26-34); Mean Corpuscular Volume 83.2 fl (80-100); Mean Platelet Volume 10.9 fl (7.4-10.4); Monocytes Absolute Auto 0.6 K/mm3 (0.1-0.6); Monocytes Percent Auto 7.3 % (2.6-8.5); Neutrophils Absolute Auto 6.2 K/mm3 (1.3-6.7); Neutrophils Percent Auto 80.9 % (45.5-73.1); Platelet Count Result 93 k/mm3 (150-375); Red Blood Count 4.64 M/mm3 (4.6-6.20); Red Cell Distribution Width 13.7 % (11.5-14.5); White Blood Count 7.7 K/mm3 (4.5-10.0)
--- NOTE | 2021-07-18 19:16 | ED.ABDPAIN ---
HPI - Abdominal Pain General Chief Complaint: Abdominal Pain Stated Complaint: abdominal pain Time Seen by Provider: 07/18/21 18:50 Source: patient Mode of arrival: ambulatory Limitations: no limitations History of Present Illness HPI narrative: This is a 71 year old male that presents to the ER for abdominal pain present over the last week. Reports intermittent abdominal discomfort that feels similar to when he had diverticulitis. Does also report some urinary discomfort. Denies fever, vomiting, or diarrhea. Related Data Home Medications Medication Instructions Recorded Confirmed acetaminophen-codeine 1 - 2 tablet PO Q6-8H PRN 08/29/19 05/14/20 fenofibrate nanocrystallized 145 mg PO DAILY 08/29/19 05/14/20 metformin 500 mg PO BID 08/29/19 05/14/20 metoprolol tartrate 50 mg BID 08/29/19 05/14/20 nitroglycerin 0.4 mg SUBLINGUAL Q5MIN PRN 08/29/19 05/14/20 omeprazole 40 mg PO DAILY 08/29/19 05/14/20 sucralfate 1 g PO Q6H 08/29/19 05/14/20 albuterol sulfate 2 puff INHALATION QID PRN 09/25/19 05/14/20 aspirin [Aspirin Low Dose] 81 mg PO DAILY 09/25/19 05/14/20 atorvastatin [Lipitor] 40 mg PO DAILY 09/25/19 05/14/20 budesonide-formoterol [Symbicort] 2 puff INHALATION Q12H 09/25/19 05/14/20 cholecalciferol (vitamin D3) 50,000 unit PO DAILY 09/25/19 05/14/20 clopidogrel [Plavix] 75 mg PO DAILY 09/25/19 05/14/20 ferrous sulfate 325 mg PO DAILY 09/25/19 05/14/20 fluticasone propionate [Flonase 1 - 2 spray INTRANASAL DAILY 09/25/19 05/14/20 Allergy Relief] glipizide [Glucotrol] 5 mg PO TID 09/25/19 05/14/20 insulin detemir U-100 [Levemir 100 unit SUBCUT BID 09/25/19 05/14/20 U-100 Insulin] ipratropium-albuterol 3 ml INHALATION QID 04/07/20 11/25/20 isosorbide mononitrate 60 mg PO DAILY 09/25/19 05/14/20 lisinopril 40 mg PO DAILY 09/25/19 05/14/20 nicotine 1 patch TRANSDERMAL DAILY 09/25/19 05/14/20 gabapentin 07/18/21 Allergies Allergy/AdvReac Type Severity Reaction Status Date / Time levofloxacin Allergy Severe ANAPHYLAXIS Verified 07/18/21 19:41 Quinolones Allergy Mild Unknown Verified 07/18/21 19:41 Review of Systems Review of Systems: CONSTITUTIONAL: Denies fever GASTROINTESTINAL: Reports abdominal pain. Denies nausea, vomiting, or diarrhea. GENITOURINARY: Reports dysuria. Denies hematuria. All systems reviewed & are unremarkable except as noted in HPI and below PMFSH Past Medical History Medical History Atrial flutter Carotid disease, bilateral Diabetes Hyperlipidemia Junctional rhythm NSCLC of right lung PAD (peripheral artery disease) Occluded right iliac, diseased left iliac Surgical History Surgical History Hx of CABG 2011: CABG x4. 2014: All grafts occluded except the SANDOVAL. Complex balloon angioplasty of the circumflex performed. 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 HEAD: Normocephalic, atraumatic. EYES: EOMI. CHEST: Clear to auscultation. No respiratory distress. No wheezes rales or rhonchi HEART: Regular rate and rhythm. No murmur heard. Normal peripher
[2021-07-18 19:18] LABS: Alanine Aminotransferase 33 U/L (4-50); Alkaline Phosphatase 131 U/L (38-126); Anion Gap 8 mmol/L (8-16); Aspartate Amino Transferase 41 U/L (17-59); Bilirubin,Total 0.5 mg/dL (0.2-1.3); Blood Urea Nitrogen 18 mg/dL (9-20); Calcium 9.2 mg/dL (8.4-10.2); Carbon Dioxide 23 mmol/L (22-30); Chloride 102 mmol/L (98-107); Estimated CRCL calculation 67 ml/min; Estimated Glomerular Filt Rate > 60; Glucose 255 mg/dL (65-110); Potassium 4.4 mmol/L (3.4-5.0); Sodium 133 mmol/L (137-145)
[2021-07-18 19:29] LABS: Lipase 3003 U/L (23-300)
[2021-07-18 19:31] LABS: Add Urine Microscopic? YES; Appearance Urine Clear (Clear); Bilirubin Urine Negative (Negative); Blood Urine Negative (Negative); Color Urine Yellow (Yellow); Glucose Urine UA 3+ mg/dL (Negative); Ketones Urine Negative (Negative); Leukocyte Esterase Ur Negative LEU/UL (Negative); Mucus Urine Rare /lpf; Nitrate Urine Negative (Negative); Protein Urine 2+ mg/dL (Negative); Squamous Epithelial Cell Urine Rare /hpf (Few); Urobilinogen Urine Negative mg/dL (<2.0); WBC Urine 0-3 /hpf
[2021-07-18] MEDS: SODIUM CHLORIDE 0.9% IV 500 ML 999 ML IV CONT (20:45)
--- NOTE | 2021-07-18 20:48 | PC.NURSE ---
this RN tried to close door to pt room and explain to pt that we keep doors closed due to current covid situation. pt visitor states I dont want the door closed because of my COPD and claustrophobia. pt visitor physically placed herself in doorway to prevent this RN from closing door. This RN let door remain open. charge nurse made aware.
--- NOTE | 2021-07-18 20:48 | PC.NURSE ---
pt visitor in room very upset and aggressive. stating We've been in here for hours and no one has updated us or told us whats going on and its bullshit, I've seen you all yacking around and cooking food and not doing anything. visitor states we'll be walking out if we dont get the results soon.
== END 2021-07-18 22:25 | disposition left against medical advice (07) ==
PROVIDERS: Physician Assistant; Emergency Provider Emergency Medicine; PCP Nurse Practitioner Family
DX: R91.8 Other nonspecific abnormal finding of lung field (principal); K86.9 Disease of pancreas, unspecified; D69.6 Thrombocytopenia, unspecified; K80.20 Calculus of gallbladder without cholecystitis without obstruction; J18.9 Pneumonia, unspecified organism; S36.039A Unspecified laceration of spleen, initial encounter; K80.12 Calculus of gallbladder with acute and chronic cholecystitis without obstruction; I48.92 Unspecified atrial flutter; I77.9 Disorder of arteries and arterioles, unspecified; E11.9 Type 2 diabetes mellitus without complications; E78.5 Hyperlipidemia, unspecified; I74.5 Embolism and thrombosis of iliac artery; Z95.1 Presence of aortocoronary bypass graft; Z79.82 Long term (current) use of aspirin; Z79.4 Long term (current) use of insulin; K85.90 Acute pancreatitis without necrosis or infection, unspecified; K74.60 Unspecified cirrhosis of liver; R16.1 Splenomegaly, not elsewhere classified; K57.90 Diverticulosis of intestine, part unspecified, without perforation or abscess without bleeding; I70.1 Atherosclerosis of renal artery; K55.1 Chronic vascular disorders of intestine; I70.0 Atherosclerosis of aorta; I70.203 Unspecified atherosclerosis of native arteries of extremities, bilateral legs; F17.210 Nicotine dependence, cigarettes, uncomplicated; X58.XXXA Exposure to other specified factors, initial encounter
CPT/HCPCS: 36415; 74177; 80053; 81001; 81003; 83690; 85025; 85055; 96361; 96374; 99284; J0131; J7040; Q9967

== ENCOUNTER 2021-09-10 08:07 | Outpatient (CLI) | payer MEDICARE, SELFPAY ==
--- NOTE | ~2021-09-10 | PE_ITS ---
EXAMINATION: PET skull to mid thigh, PET skull to mid thigh DATE: 09/10/2021 09:53 INDICATION: Lung mass TECHNIQUE: 1. On the initial imaging on 09/10/2021 the blood glucose level was 96 mg/dL. 6.948 mCi of 18-fluorode oxyglucose (18-FDG) was administered i.v. Low dose computed tomography (CT) images were acquired from the base of the brain to the proximal thighs for attenuation correction and anatomic localization. P ositron emission tomography (PET) images were acquired in the same distribution beginning 50 minutes after injection. Images including fused PET/CT images were reconstructed in axial, coronal, and sagit isatu planes. Automated exposure control technique was employed. The dose-length product was 646.86 mGy -cm. 2. The patient returned on 09/14/2021 4 repeat imaging for which the patient was not charged. The bloo d glucose level was 246 mg/dL. 6.948 mCi of 18-fluorodeoxyglucose (18-FDG) was administered i.v. Low dose computed tomography (CT) images were acquired from the base of the brain to the proximal thighs for attenuation correction and anatomic localization. Positron emission tomography (PET) images were acquired in the same distribution beginning 54 minutes after injection. Images including fused PET/CT images were reconstructed in axial, coronal, and sagittal planes. Automated exposure control [employer] ue was employed. The dose-length product was 678.50 mGy-cm. COMPARISON: PET/CT dated 07/24/2019, CT abdomen and pelvis dated 07/18/[address] with contrast d ated 08/29/2019. FINDINGS: On the initial imaging there was relatively poor uptake throughout the body. For reference the rosario l SUV of the liver was 0.9 and the maximal SUV of the excreted was 5.6 in the bladder and 2.9 at the left renal collecting system. Relevant imaging findings initial study will be discussed below in the context of the subsequent PET study. Head/neck: There is symmetric mild increased activity in the oral cavity, laryngeal muscles and ocular muscles w ithout CT correlate, likely physiologic. No pathologically enlarged cervical lymphadenopathy or suspi cious foci of increased FDG uptake in the visualized head or neck. Chest: On the initial imaging there was relative to the baseline activity, mild to moderate increased uptake with maximal SUV of 1.5 associated with a 2.6 x 1.9 cm spiculated parahilar nodule in the right midd le lobe. To provide context, this is partly 70% higher than the maximal spleen the liver and slightly greater than one half of the level of excreted activity at the left renal pelvis. On the follow-up i maging for days prior there is no evident FDG uptake associated with the nodule which is decreased in size to 2.2 x 1.5 cm which is near identical to the size on the earlier CT of the abdomen and pelvis dated 07/18/2021. There is thickening branching structures extending into the posterior basilar segme nts of the left lower lobe with mild surrounding airspace disease. On a prior PE protocol CT on 2025. 2 represent mucus impacted bronchi. Compared with CT abdomen and pelvis from 07/18/2021 however these appear to correspond to mildly dilated pulmonary arteries with internal filling defect suspicio us for pulmonary embolism. No pleural effusion. Heart size is normal. Atherosclerotic coronary artery calcifications and change of prior median sternotomy and coronary artery bypass grafting. No pericar dial effusion. No pathologically enlarged or FDG avid thoracic lymphadenopathy. Abdomen/pelvis/proximal thighs: Physiologic renal accumulation and excretion of FDG activity in the kidneys, bladder and along portio ns of ureters. Normal degree and heterogenous pattern of increased uptake throughout the liver. There is approximately 2 cm hypodense lesion in the right hepatic lobe corresponding in size and location to the peripherally enhancing lesion identified on the prior contrast enhanced
[2021-09-10 08:28] LABS: Glucose Point of Care 96 mg/dl (65-105)
== END 2021-09-10 08:08 | disposition home or self-care (01) ==
LOC: ANHIMG 08:10
PROVIDERS: PCP Nurse Practitioner Family; Visit Provider Internal Medicine Pulmonary Disease
DX: C34.31 Malignant neoplasm of lower lobe, right bronchus or lung (principal)
CPT/HCPCS: 78815; A9552

== ENCOUNTER 2021-09-14 08:03 | Outpatient (CLI) | payer MEDICARE, SELFPAY ==
[2021-09-14 09:01] LABS: Glucose Point of Care 246 mg/dl (65-105)
[2021-09-14 09:01] LABS: Glucose Point of Care 268 mg/dl (65-105)
[2021-09-14 09:01] LABS: Glucose Point of Care 252 mg/dl (65-105)
== END 2021-09-14 08:04 | disposition home or self-care (01) ==
LOC: ANHIMG 08:06
PROVIDERS: PCP Nurse Practitioner Family; Visit Provider Internal Medicine Pulmonary Disease
DX: R91.1 Solitary pulmonary nodule (principal); N40.0 Benign prostatic hyperplasia without lower urinary tract symptoms
CPT/HCPCS: 99199; 78815; A9552

== ENCOUNTER 2021-09-25 10:38 | Outpatient (CLI) | payer MEDICARE, SELFPAY ==
[2021-09-25 14:06] LABS: Carcinoembryonic Antigen 3.1 ng/mL (0.0-3.0)
[2021-09-30 18:37] LABS: Alpha Fetoprotein Tumor Marker 2.1 ng/mL (<6.1)
== END 2021-09-25 10:39 | disposition home or self-care (01) ==
LOC: ANHLAB 10:40
PROVIDERS: PCP Nurse Practitioner Family; Visit Provider Internal Medicine Hematology & Oncology
DX: C18.9 Malignant neoplasm of colon, unspecified (principal); K74.60 Unspecified cirrhosis of liver
CPT/HCPCS: 36415; 82105; 82378

== ENCOUNTER 2021-12-29 08:52 | Outpatient (CLI) | payer MEDICARE, SELFPAY ==
--- NOTE | ~2021-12-29 | MR_ITS ---
EXAMINATION: MR abdomen wo/w con DATE: 12/29/2021 10:25 INDICATION: Liver lesion. Previous lung cancer. TECHNIQUE: Magnetic resonance imaging (MRI) of the abdomen was performed without and with 15 mL Multi darrion intravenous contrast. Sequences included coronal T2-weighted SS-FSE, coronal and axial FS 2D-F IESTA, axial STIR FSE, axial T2-weighted SS-FSE, axial T2-weighted FS SS-FSE, axial diffusion-weighte d SE, axial dual-echo T1-weighted FSPGR, and axial and coronal T1-weighted LAVA. Postcontrast axial T 1-weighted LAVA images were obtained in a time course. Postcontrast coronal T1-weighted LAVA images w ere obtained. COMPARISON: CT abdomen and pelvis dated 07/18/2021, PET/CT studies dated 09/10/2021 and 09/14/2021 and M RI dated 06/15/2016 FINDINGS: Interval increase in size of and infrahilar mass in the right lower lobe which on coronal imaging bo sures 3.3 x 4.0 cm and which is concerning for recurrent lung cancer. Heart size is normal. No perica rdial or pleural effusion. 2.6 x 2.5 cm lesion in segment 8 of the liver with central early arterial phase enhancement and with subsequent development of a contiguous rim of peripheral enhancement on th e portal venous phase imaging. There is washout of contrast relative to the surrounding liver on the delayed imaging. The enhancement pattern is concerning for malignancy/metastatic disease. No other he patic lesions identified. Gallbladder is normal with no cholelithiasis common bile duct measures up t o 7 mm diameter which is within normal limits for age. No intrahepatic biliary ductal dilation. Splen omegaly measuring up to 16.3 cm in maximal length. There is a 2.9 x 1.8 x 1.9 cm cm cystic structure with several thin internal septations at the head of the pancreas along side the main pancreatic duct which is dilated to 10 mm in maximal diameter which is increased since the prior study at which time the main pancreatic duct measuring up to 6 mm in maximal diameter. There are multiple tiny pancreati c ductal side branches at the tail of the pancreas. No evident abnormally enhancing obstructing mass at the head of the pancreas. Bilateral adrenal glands and kidneys are normal. There are scattered colonic diverticula without adjacent inflammatory stranding to suggest diverticul itis. No bowel obstruction. No pathologically enlarged abdominal lymphadenopathy. Normal bone marrow signal throughout. IMPRESSION: 1. Enlarging infrahilar right lower lobe mass concerning for recurrent primary bronchogenic carcinoma . 2. Arterial enhancing 2.6 cm mass in segment 8 of liver with subsequent washout on more delayed imagi ng concerning for either primary malignancy or metastatic disease. 3. Increased enlargement of the main pancreatic duct with multiple prominent ductal side branches wit hout evident abnormally enhancing an obstructing mass at the head of the pancreas in this likely repr esents sequela of chronic pancreatitis. 4. 2.9 x 1.8 x 1.9 cm cystic structure with internal septations at the head of the pancreas. The diff erential diagnosis includes pseudocyst related to prior pancreatitis, intraductal papillary mucinous neoplasm (IPMN), mucinous cystic neoplasm (MCN), and the less common serous cystadenoma and neuroendo crine tumor. 5. Nonspecific splenomegaly. Reviewed, dictated and finalized at [facility]. IMPRESSION: 1. Enlarging infrahilar right lower lobe mass concerning for recurrent primary bronchogenic carcinoma. 2. Arterial enhancing 2.6 cm mass in segment 8 of liver with subsequent washout on more delayed imaging concerning for either primary malignancy or metastatic disease. 3. Increased enlargement of the main pancreatic duct with multiple prominent du ctal side branches without evident abnormally enhancing an obs
--- NOTE | ~2021-12-29 | CT_ITS ---
EXAMINATION:CT diagnostic chest w con DATE: 12/29/2021 09:31 INDICATION: Malignant neoplasm of lower lobe of right lung. TECHNIQUE: Computed tomography (CT) of the chest was performed with 100 mL Omnipaque 300 intravenous contrast. Automated exposure control and iterative reconstruction technique were employed. The dose-l ength product (DLP) was 274.99 mGy-cm. COMPARISON: Chest CT 05/12/2020, 07/08/19, CT abdomen and pelvis 07/18/21, 01/24/16 FINDINGS: There is mild emphysema. There is a 5.5 x 4.0 cm mass in perihilar right lower lobe. There are contiguous airspace opacities in perihilar right middle lobe, consistent with radiation fibrosis. There is a 4 mm nodule in right lower lobe. No pleural effusion. The heart size is normal. There are coronary artery calcifications. The calcifications aortic valve. There are changes of coronary arter y bypass grafting. There is a 2.4 cm hyperenhancing mass in right hepatic lobe. Splenomegaly is noted . The pancreatic duct is dilated. There is trace perihepatic ascites. There is mild thoracic spondylo sis. IMPRESSION: 1. Worsened 5.5 x 4.0 cm mass in perihilar right lower lobe, consistent with primary bronchogenic car cinoma. 2. New 4 mm nodule in right lung lower lobe, which may be granulomatous disease or metastatic disease . 3. 2.4 cm hyperenhancing mass in right hepatic lobe suspicious for hepatocellular carcinoma. 4. Partially visualized pancreatic duct dilatation, which may be secondary to chronic pancreatitis or pancreatic malignancy. MRCP without and with contrast is recommended. 5. Splenomegaly. Reviewed, dictated and finalized at [facility]. IMPRESSION: 1. Worsened 5.5 x 4.0 cm mass in perihilar right lower lobe, consistent with pr imary bronchogenic carcinoma. 2. New 4 mm nodule in right lung lower lobe, which may be granulomatous disease or metastatic disease. 3. 2.4 cm hyperenhancing mass in right hepatic lobe suspicious for hepatocellul ar carcinoma. 4. Partially visualized pancreatic duct dilatation, which may be secondary to c hronic pancreatitis or pancreatic malignancy. MRCP without and with contrast is recommended. 5. Splenomegaly.
[2021-12-29 09:25] LABS: Estimated Glomerular Filt Rate 55
== END 2021-12-29 08:53 | disposition home or self-care (01) ==
PROVIDERS: PCP Nurse Practitioner Family; Visit Provider Internal Medicine Hematology & Oncology
DX: C34.31 Malignant neoplasm of lower lobe, right bronchus or lung (principal); R16.1 Splenomegaly, not elsewhere classified
CPT/HCPCS: 71260; 74183; A9577; Q9967

== ENCOUNTER 2022-02-02 07:36 | Outpatient (CLI) | payer MEDICARE, SELFPAY ==
--- NOTE | ~2022-02-02 | PE_ITS ---
EXAMINATION: PET skull to mid thigh DATE: 02/02/2022 09:26 INDICATION: Malignant neoplasm of unspecified part of right lung. TECHNIQUE: Blood glucose level was 216 mg/dL. 9.773 mCi of 18-fluorodeoxyglucose (18-FDG) was adminis tered i.v. Low dose computed tomography (CT) images were acquired from the base of the brain to the p roximal thighs for attenuation correction and anatomic localization. Automated exposure control was e mployed. Dose-length product (DLP) was 652 mGy-cm. Positron emission tomography (PET) images were acq uired in the same distribution. COMPARISON: PET/CT 09/14/2021, chest CT 12/29/2021, CT abdomen and pelvis 07/18/21, abdomen MRI 12/29/21 FINDINGS: Head/neck: There is increased activity in the oral cavity, oropharynx, and glottis without abnormal C T correlate, likely physiologic. There are no pathologically enlarged lymph nodes. Chest: There is mild emphysema. In the right lower lobe, there is a 4.8 x 4.7 cm mass at the hilum wi th maximum SUV of 2.4, increased from 3.7 x 2.3 cm on 09/14/21. There are contiguous perihilar airspac e opacities in right middle lobe and right lower lobe without increased activity, consistent with madan nges of radiation therapy. No pleural effusion. Cardiomegaly is noted. There are coronary artery calc ifications. There are changes of coronary artery bypass grafting. There are calcifications of the aor tic valve. There is a 17 x 14 mm right paratracheal lymph node without increased activity. There is b ilateral gynecomastia. Abdomen/pelvis/proximal thighs: In the right hepatic lobe, a hyperenhancing mass seen on prior imagin g demonstrates a maximum SUV of 3.1. It is occult by noncontrast CT. The gallbladder is normal in siz e and contains gallstones. Splenomegaly is noted. There is a paraumbilical portacaval shunt. The panc reatic duct is dilated, likely secondary to chronic pancreatitis. There is no increased activity in t he pancreas. The adrenal glands and kidneys are normal. The prostate is moderately enlarged. There is a left inguinal hernia containing fat. There is diverticulosis of the colon without evidence of dive rticulitis. There are no pathologically enlarged lymph nodes. There is trace ascites. There is no oss eous malignancy. IMPRESSION: 1. Right lower lobe mass with maximum SUV of 2.4 with enlargement from 09/14/2021, consistent with tay filemon bronchogenic carcinoma. 2. Mass in right hepatic lobe seen on prior imaging that is occult by noncontrast CT with maximum SUV of 3.1. This finding may be hepatocellular carcinoma or metastatic disease. 3. Mildly enlarged mediastinal lymph node without increased activity, likely benign. Reviewed, dictated and finalized at location A. IMPRESSION: 1. Right lower lobe mass with maximum SUV of 2.4 with enlargement from , consistent with primary bronchogenic carcinoma. 2. Mass in right hepatic lobe seen on prior imaging that is occult by noncontra st CT with maximum SUV of 3.1. This finding may be hepatocellular carcinoma or metastatic disease. 3. Mildly enlarged mediastinal lymph node without increased activity, likely be nign.
--- NOTE | ~2022-02-02 | MR_ITS ---
EXAMINATION: MR brain/brain stem wo/w con DATE: 02/02/2022 11:54 INDICATION: Lung cancer staging. TECHNIQUE: Magnetic resonance imaging (MRI) of the brain and brainstem was performed without and with 15 mL MultiHance intravenous contrast. COMPARISON: Head CT 06/12/2016 FINDINGS: There is a small old infarct in right cerebellum. There are scattered areas of nonspecific increased T2-weighted signal intensity in the cerebral white matter, which is within normal limits fo r the patient's age. There is no intracranial hemorrhage, acute infarction, or abnormal intracranial mass lesion. The ventricles are normal in size. There is mild mucosal thickening in the ethmoid sinus es. The mastoid air cells are normal. IMPRESSION: 1. Small old infarct in right cerebellum. Reviewed, dictated and finalized at location A.
[2022-02-02 08:09] LABS: Glucose Point of Care 216 mg/dl (65-105)
== END 2022-02-02 07:37 | disposition home or self-care (01) ==
LOC: ANHIMG 07:37
PROVIDERS: PCP Nurse Practitioner Family; Visit Provider Radiology Radiation Oncology
DX: R91.1 Solitary pulmonary nodule (principal); C34.91 Malignant neoplasm of unspecified part of right bronchus or lung; R93.0 Abnormal findings on diagnostic imaging of skull and head, not elsewhere classified
CPT/HCPCS: 70553; 78815; A9552; A9577

== ENCOUNTER 2022-04-12 12:56 | Outpatient (CLI) | payer MEDICARE, SELFPAY ==
--- NOTE | ~2022-04-12 | CT_ITS ---
EXAMINATION:CT diagnostic chest w con DATE: 04/12/2022 13:56 INDICATION: Malignant neoplasm of lower lobe of right lung. TECHNIQUE: Computed tomography (CT) of the chest was performed with 75 mL Omnipaque 350 intravenous c ontrast. Automated exposure control and iterative reconstruction technique were employed. The dose-le ngth product (DLP) was 276.82 mGy-cm. COMPARISON: Chest CT 12/29/2021, MRCP 04/12/22, PET/CT 02/02/22 FINDINGS: There is mild emphysema. There is a 5.9 x 5.3 cm mass in perihilar right lower lobe that pr eviously measured 5.9 x 3.7 cm. Airspace opacities in the more peripheral basal segments of right low er lobe, likely postobstructive atelectasis and pneumonia. No pleural effusion. The heart size is nor mal. There are coronary artery calcifications. There are calcifications of aortic valve. There are ch anges of coronary artery bypass grafting. No pericardial effusion. There is a 13 x 15 mm right paratr acheal lymph node, stable from 12/29/2021 and without increased activity on prior PET/CT, likely benig n. There is a 4.3 cm hypodense mass in right hepatic lobe. There is a small volume of ascites. Again seen is dilatation of the pancreatic duct, which is partially visualized. Splenomegaly is noted. Fadia catia varices are noted. There is mild thoracic spondylosis. IMPRESSION: 1. Worsened mass in right lung lower lobe, consistent with primary bronchogenic carcinoma. 2. Postobstructive pneumonia and atelectasis in basilar right lower lobe. 3. Mass in right hepatic lobe, which may be changes of a percutaneous ablation procedure. 4. Small volume of ascites. Reviewed, dictated and finalized at location A.
--- NOTE | ~2022-04-12 | MR_ITS ---
EXAMINATION: MR abdomen wo/w con DATE: 04/12/2022 16:10 INDICATION: Liver lesion TECHNIQUE: Magnetic resonance imaging (MRI) of the abdomen was performed without and with 15 mL Multi darrion intravenous contrast. Sequences included coronal T2-weighted SS-FSE, coronal and axial FS 2D-F IESTA, axial STIR FSE, axial T2-weighted SS-FSE, axial T2-weighted FS SS-FSE, axial diffusion-weighte d SE, axial dual-echo T1-weighted FSPGR, and axial and coronal T1-weighted LAVA. Postcontrast axial T 1-weighted LAVA images were obtained in a time course. Postcontrast coronal T1-weighted LAVA images w ere obtained. COMPARISON: 12/29/2021 FINDINGS: Significant interval increase in size of a previously 4.0 x 3.7 x 3.5 cm spiculated right lower lobe mass which currently measures 5.1 x 5.0 x 4.8 cm consistent with progression of primary bronchogenic carcinoma. Small right pleural effusion. Cardiomegaly. No pericardial or left pleural effusion. Magne tic field artifact along the sternum likely related to median sternotomy wires and prior coronary art florencia bypass grafting. Small amount of perihepatic ascites with additional small amount of scattered as cites in the left and right lower quadrants. There is a nodular liver surface consistent with cirrhos is. A prior peripherally enhancing mass previously measuring 3.0 x 2.5 cm segment 8 of the liver has increased in size to 4.4 x 3.3 cm but now with essentially absent central enhancement suggesting comb ination of progression of disease and likely response to treatment with central necrosis are couple a dditional. No other hepatic lesions identified. Gallbladder is normal with no cholelithiasis. The com mon bile duct measures up to 7 mm diameter which is within normal limits for age. No intrahepatic adam iary ductal dilation.. Splenomegaly measuring 16.2 cm likely related to secondary portal venous hyper tension. Again seen is prominent dilation of the main pancreatic duct which measures up to 10 mm in m aximal diameter at the head of the pancreas. There are few dilated pancreatic ductal side branches ar ising from the main pancreatic duct. Significant change in a 2.9 x 1.5 x 2.2 cm cystic mass at the he ad of the pancreas which appears contiguous with the main pancreatic duct. No evident obstructing sto ne or abnormally enhancing mass at the head of the pancreas. Bilateral adrenal glands and kidneys are normal. No dilated bowel to suggest obstruction. Multiple diverticula along the visualized transvers e colon. No pathologically enlarged abdominal lymphadenopathy. Normal bone marrow signal throughout. IMPRESSION: 1. Continued enlargement of a now 5.1 cm right lower lobe infrahilar mass concerning for progression of recurrent primary bronchogenic carcinoma. 2. Interval increase in size of a now 4.4 cm peripherally enhancing mass in segment 8 of liver concer michael for malignancy which could be either primary or metastatic. Large central nonenhancing region wh ich suggests possible interval response to treatment with central necrosis. 3. Cirrhosis and splenomegaly likely related to secondary portal venous hypertension. 4. No significant change in a 2.9 x 1.5 x 2.2 cm cystic mass at the head of the pancreas. The differe ntial diagnosis includes pseudocyst, intraductal papillary mucinous neoplasm (IPMN), mucinous cystic neoplasm (MCN), and the less common serous cystadenoma and neuroendocrine tumor. Correlate for histor y of pancreatitis. 5. Persistent prominent enlargement of the main pancreatic duct with multiple prominent ductal side b ranches without evident obstructing stone or mass and this may represent sequela of chronic pancreati tis. Reviewed, dictated and finalized at location A.
[2022-04-12 13:46] LABS: Estimated Glomerular Filt Rate > 60
== END 2022-04-12 12:57 | disposition home or self-care (01) ==
LOC: ANHIMG 13:00
PROVIDERS: PCP Nurse Practitioner Family; Referring Provider Radiology Radiation Oncology; Visit Provider Internal Medicine Hematology & Oncology
DX: C34.31 Malignant neoplasm of lower lobe, right bronchus or lung (principal); R18.8 Other ascites; R91.8 Other nonspecific abnormal finding of lung field
CPT/HCPCS: 71260; 74183; A9577; Q9967

== ENCOUNTER 2022-06-30 09:25 | Outpatient (CLI) | payer MEDICARE, SELFPAY ==
[2022-06-30 09:39] LABS: Basophils Percent Auto 0.6 % (0.2-1.2); Eosinophils Absolute Auto 0.1 K/mm3 (0-0.3); Eosinophils Percent Auto 1.7 % (0-4.4); Hemoglobin 12.7 g/dL (14.0-18.0); Immature Granulocyte Absolute 0.01 K/mm3 (0.00-0.031); Immature Granulocyte Percent A 0.2 % (0-0.5); Lymphocytes Absolute Auto 0.77 K/mm3 (0.9-3.2); Lymphocytes Percent Auto 14.2 % (18.3-44.2); Mean Corpuscular HGB Conc 30.2 g/dl (32-36); Mean Corpuscular Hemoglobin 23.2 pg (26-34); Mean Corpuscular Volume 76.8 fl (80-100); Mean Platelet Volume 9.9 fl (7.4-10.4); Monocytes Absolute Auto 0.5 K/mm3 (0.1-0.6); Monocytes Percent Auto 8.8 % (2.6-8.5); Neutrophils Absolute Auto 4.1 K/mm3 (1.3-6.7); Neutrophils Percent Auto 74.5 % (45.5-73.1); Platelet Count Result 97 k/mm3 (150-375); Red Blood Count 5.47 M/mm3 (4.6-6.20); Red Cell Distribution Width 14.6 % (11.5-14.5); White Blood Count 5.4 K/mm3 (4.5-10.0)
[2022-06-30 10:32] LABS: Alanine Aminotransferase 36 U/L (6-50); Albumin Level 3.7 g/dL (3.5-5.1); Alkaline Phosphatase 228 U/L (38-126); Anion Gap 3 mmol/L (8-16); Aspartate Amino Transferase 42 U/L (17-59); Bilirubin,Total 0.7 mg/dL (0.2-1.3); Blood Urea Nitrogen 18 mg/dL (9-20); Calcium 8.3 mg/dL (8.4-10.2); Carbon Dioxide 33 mmol/L (22-30); Chloride 104 mmol/L (98-107); Estimated Glomerular Filt Rate > 60; Glucose 123 mg/dL (65-110); Potassium 4.2 mmol/L (3.4-5.0); Sodium 140 mmol/L (137-145)
[2022-07-05 16:21] LABS: Alpha Fetoprotein Tumor Marker 1.8 ng/mL (<6.1)
== END 2022-06-30 09:26 | disposition home or self-care (01) ==
LOC: ANHLAB 09:26
PROVIDERS: PCP Nurse Practitioner Family; Visit Provider Internal Medicine Hematology & Oncology
DX: C22.0 Liver cell carcinoma (principal)
CPT/HCPCS: 36415; 80053; 82105; 85025

== ENCOUNTER 2022-08-23 16:20 | Outpatient (CLI) | payer MEDICARE, SELFPAY ==
[2022-08-23 17:53] LABS: Hematocrit 29.4 % (42.0-52.0); Immature Platelet Fraction Pct 10.6 % (0.9-11.2); Mean Corpuscular HGB Conc 30.6 g/dl (32-36); Mean Corpuscular Volume 78.4 fl (80-100); Mean Platelet Volume 11.4 fl (7.4-10.4); Platelet Count Result 123 k/mm3 (150-375); Red Blood Count 3.75 M/mm3 (4.6-6.20); Red Cell Distribution Width 25.2 % (11.5-14.5); White Blood Count 21.2 K/mm3 (4.5-10.0)
[2022-08-23 18:11] LABS: Alanine Aminotransferase 52 U/L (6-50); Albumin Level 2.9 g/dL (3.5-5.1); Alkaline Phosphatase 963 U/L (38-126); Anion Gap 9 mmol/L (8-16); Aspartate Amino Transferase 102 U/L (17-59); Bilirubin,Total 1.8 mg/dL (0.2-1.3); Blood Urea Nitrogen 29 mg/dL (9-20); Calcium 7.3 mg/dL (8.4-10.2); Carbon Dioxide 23 mmol/L (22-30); Chloride 103 mmol/L (98-107); Estimated Glomerular Filt Rate > 60; Glucose 120 mg/dL (65-110); Potassium 3.5 mmol/L (3.4-5.0); Sodium 135 mmol/L (137-145)
[2022-08-23 18:15] LABS: Band Neutrophils Percent 9 % (0-6); Monocytes Absolute Manual 0.21 K/mm3 (0.1-0.90); Monocytes Percent Manual 1 % (3-9); Neutrophils Absolute Manual 20.98 K/mm3 (1.3-6.7); Neutrophils Percent Manual 90 % (46-73); Total Cells Counted 100
[2022-08-23 18:16] LABS: Anisocytosis 3+ (NORMAL); Hypochromasia 1+ (NORMAL); Platelet Estimate Decreased (Adequate); Schistocytes None Seen (NORMAL)
[2022-08-23 18:19] LABS: NT Pro B Type Natriuretic Pept > 30000 pg/mL (19.9-100)
== END 2022-08-23 16:21 | disposition home or self-care (01) ==
PROVIDERS: PCP Nurse Practitioner Family; Visit Provider Nurse Practitioner Family
DX: N18.9 Chronic kidney disease, unspecified (principal); D63.1 Anemia in chronic kidney disease; R53.1 Weakness; R06.02 Shortness of breath
CPT/HCPCS: 36415; 80053; 83880; 85025; 85055